=== PATIENT | male | born 1965 | race Caucasian/White ===

== ENCOUNTER 2018-12-23 10:52 | Outpatient (REF) | payer OTHER, SELFPAY ==
[2018-12-23 20:57] LABS: Anion Gap 8.7 mmol/L (3-11); BUN 19 mg/dL (7-18); CO2 26.3 mmol/L (21.0-32.0); CREATININE 0.73 mg/dL (0.70-1.30); Calcium 9.5 mg/dL (8.5-10.1); Chloride 105 mmol/L (98-107); Glucose 129 mg/dL (70-100); Potassium 4.4 mmol/L (3.5-5.1); Sodium 140 mmol/L (136-145)
== END 2018-12-23 11:12 ==
LOC: NCHCN 10:52
PROVIDERS: PCP Physician Assistant Medical; Visit Provider Physician Assistant Medical
DX: I10 Essential (primary) hypertension (principal); R73.03 Prediabetes
CPT/HCPCS: 80048

== ENCOUNTER 2023-02-26 13:30 | Outpatient (REF) | payer MEDICAID, SELFPAY ==
[2023-02-26 20:48] LABS: Hemoglobin A1C 6.4 % (<5.7)
[2023-02-26 20:55] LABS: ALT 28 U/L (16-63); AST 26 U/L (15-37); Albumin 3.8 g/dL (3.4-5.0); Alkaline Phosphatase 132 U/L (46-116); Anion Gap 8.4 mmol/L (3-11); BUN 17 mg/dL (7-18); Bilirubin, Total 0.3 mg/dL (0.2-1.0); CO2 26.6 mmol/L (21.0-32.0); CREATININE 0.8 mg/dL (0.70-1.30); Calcium 9.5 mg/dL (8.5-10.1); Calculated LDL 119 mg/dL (<100); Chloride 104 mmol/L (98-107); Cholesterol 178 mg/dL (<200); Estimated GFR 103.87 (mL/min/1.73m2); Glucose 123 mg/dL (74-106); HDL Cholesterol 47 mg/dL (40-60); Potassium 4.7 mmol/L (3.5-5.1); Sodium 139 mmol/L (136-145); Total Protein 7.7 g/dL (6.4-8.2); Triglyceride 62 mg/dL (<150)
== END 2023-02-26 13:31 | disposition home or self-care (01) ==
LOC: NCHCN 13:30
PROVIDERS: PCP Physician Assistant Medical; Visit Provider Physician Assistant
DX: I10 Essential (primary) hypertension (principal); R73.03 Prediabetes; E78.5 Hyperlipidemia, unspecified
CPT/HCPCS: 80053; 80061; 83036

== ENCOUNTER 2024-04-22 18:01 | Outpatient (REF) | payer MEDICAID, SELFPAY ==
[2024-04-22 19:28] LABS: Abs Immature Grans 0.03 10^3/uL (0.0-0.06); Absolute Basophil Count 0.08 10^3/uL (0.0-0.2); Absolute Eosinophil Count 0.28 10^3/uL (0.0-0.7); Absolute Lymphocyte Count 1.11 10^3/uL (1.2-3.4); Absolute Monocyte Count 0.74 10^3/uL (0.1-0.8); Absolute Neutrophil Count 4.36 10^3/uL (1.2-6.7); Basophils % 1.2 %; Eosinophils % 4.2 %; HCT 41.3 % (40.0-50.0); HGB 13.8 g/dL (13.5-17.5); Immature Grans % 0.5 %; Lymphocytes % 16.8 %; MCH 28.8 pg (27.0-33.0); MCHC 33.4 % (32.0-36.0); MCV 86 fL (80-95); Monocytes % 11.2 %; Neutrophils % 66.1 %; Platelet Count 366 10^3/uL (130-400); RBC 4.79 10^6/uL (4.36-5.78); RDW 14.1 % (11.8-14.1); RDW-SD 44.6 fL
[2024-04-22 19:44] LABS: ALT 21 U/L (16-63); AST 27 U/L (15-37); Albumin 3.8 g/dL (3.4-5.0); Alkaline Phosphatase 136 U/L (46-116); Anion Gap 5.9 mmol/L (3-11); BUN 12 mg/dL (7-18); Bilirubin, Total 0.62 mg/dL (0.2-1.0); CO2 28.1 mmol/L (21.0-32.0); Calcium 9.4 mg/dL (8.5-10.1); Chloride 104 mmol/L (98-107); Estimated GFR 87.78 (mL/min/1.73m2); Glucose 104 mg/dL (74-106); Potassium 3.8 mmol/L (3.5-5.1); Sodium 138 mmol/L (136-145); Total Protein 7.6 g/dL (6.4-8.2)
== END 2024-04-22 18:02 | disposition home or self-care (01) ==
LOC: NCHCN 18:01
PROVIDERS: PCP Physician Assistant; Visit Provider Physician Assistant
DX: I10 Essential (primary) hypertension (principal)
CPT/HCPCS: 80053; 85025

== ENCOUNTER 2024-09-16 15:33 | Outpatient (CLI) | payer MEDICAID, SELFPAY ==
--- NOTE | 2024-09-16 15:15 | DI.RAD_ITS ---
Exam(s) XR STANDING ALIGNMENT EXAM: XR STANDING ALIGNMENT CLINICAL HISTORY: TKR planning. TECHNIQUE: 2D digital imaging was performed. COMPARISON: No exams were available for comparison FINDINGS: 3 views There has been previous right knee ACL surgery. No narrowing of the medial compartment of the right knee. Relatively maintained height of the lateral compartment although there is chondrocalcinosis in the lateral compartment noted. The opposite-left knee appears unremarkable. Both hips appear unrem arkable as do the ankles. Next awilda ossicles noted subjacent to the lateral malleolus of the right ankle. Talar domes appear unremarkable. Bone density is normal. There are no osseous lesions. Sac roiliac joints appear unremarkable. IMPRESSION: Previous right knee ACL surgery with advanced osteoarthritic degenerative changes in the medial javi rtment of the right knee. DATA REPOSITORY: RADIATION DOSE DELIVERED:
--- NOTE | 2024-09-16 16:07 | DI.RAD_ITS ---
Exam(s) XR KNEE RT 1V EXAM: XR KNEE RT 1V CLINICAL HISTORY: TKR planning. TECHNIQUE: 2D digital imaging was performed. COMPARISON: Standing bilateral AP images earlier today FINDINGS: Single lateral view of the right knee There is evidence of previous ACL surgery. [id number] narrowing of the medial compartment is noted and there also advanced degenerative changes in the patellofemoral compartment. There are prominent opposing osteophytes off the superior pole of patella and anterior aspect of the femoral condyles. Incidentally noted is deep subcutaneous calcification of the posterior calf, possibly related to supe rficial veins. IMPRESSION: Advanced degenerative changes in the right knee. Previous ACL surgery. DATA REPOSITORY: RADIATION DOSE DELIVERED:
--- NOTE | 2024-09-16 16:07 | DI.RAD_ITS ---
Exam(s) XR KNEE LT 1V EXAM: XR KNEE LT 1V CLINICAL HISTORY: TKR planning. TECHNIQUE: 2D digital imaging was performed. COMPARISON: CR XR KNEE RT 1V from 09/16/2024 FINDINGS: Single lateral view of the left knee: No evidence of fracture. There is a small joint effusion noted. There is also an enthesophyte at th e quadriceps insertion site on the anterosuperior aspect of the patella. There are no obvious degene rative changes in the in the patellofemoral compartment on this view. Mild joint space narrowing oth er compartments IMPRESSION: Mild findings as above. There is also a joint effusion. DATA REPOSITORY: RADIATION DOSE DELIVERED:
== END 2024-09-16 15:34 | disposition home or self-care (01) ==
LOC: DIORS 15:34
PROVIDERS: PCP Physician Assistant; Visit Provider Physician Assistant
DX: M17.0 Bilateral primary osteoarthritis of knee (principal)
CPT/HCPCS: 73560; 77073

== ENCOUNTER 2024-10-05 01:11 | Outpatient (CLI) | payer MEDICAID, SELFPAY ==
--- NOTE | 2024-10-05 13:00 | DI.MRI_ITS ---
Exam(s) MR UPPER JOINT RT WO EXAM: MR UPPER JOINT RT WO CLINICAL HISTORY: R SHOULDER PAIN,RT ROTATOR CUFF TEAR,M75.101. TECHNIQUE: Multiplanar multisequence MRI was performed. COMPARISON: There are no priors for comparison. FINDINGS: BONES: There is no fracture or contusion pattern. There are subchondral cysts seen in the greater tub erosity. JOINTS: [id number] degenerative changes are seen at the acromioclavicular joint. TENDONS: Supraspinatus: There is a complete tear of the supraspinatus tendon with retraction to the level of t he glenohumeral joint. There is superior subluxation of the humeral head relative to the glenoid con sistent with a large rotator cuff tear. Infraspinatus: There is also near complete tear of the infraspinatus tendon. There does appear to be a small component of the tendon posteriorly adjacent to the teres minor tendon. The remainder of th e tendon is retracted. Subscapularis: Unremarkable. Teres Minor: Unremarkable. Biceps and [place]: There is a shallow bicipital groove and medial subluxation of the biceps tendon is noted. MUSCLES: There is marked fatty atrophy of both the supraspinatus and infraspinatus muscles. The subs capularis and teres minor muscles show normal signal and size. GLENOID LABRUM: There is abnormal signal within the posterior superior labrum. This may represent de generation or tear. SOFT TISSUES: Unremarkable. LIGAMENTS: There does appear to be thickening of the middle glenohumeral ligament. OTHER: There is some fluid seen in the subacromial subdeltoid bursa. IMPRESSION: 1. Complete tear of the supraspinatus tendon with retraction to the level of the glenohumeral joint. 2. Large near complete tear of the infraspinatus tendon with retraction. 3. Marked fatty atrophy of the supraspinatus and infraspinatus muscles. 4. Tear versus degeneration of the posterior superior labrum. 5. Degenerative changes seen at the acromioclavicular joint and the greater tuberosity. 6. Medial subluxation of the biceps tendon. DATA REPOSITORY:
--- NOTE | 2024-10-05 13:45 | DI.MRI_ITS ---
Exam(s) MR UPPER JOINT LT WO EXAM: MR UPPER JOINT LT WO CLINICAL HISTORY: L SHOULDER PAIN,LT ROTATOR CUFF TEAR,M75.102. TECHNIQUE: Multiplanar multisequence MRI was performed. COMPARISON: CR XR SHOULDER MIN 2V BILAT-M2 from 09/13/2024 MR MR UPPER JOINT RT WO from 10/05/2024 FINDINGS: BONES: There is no fracture or contusion pattern. JOINTS: There are mild degenerative changes seen at the acromioclavicular joint. There is mild super ior subluxation of the humeral head relative to the glenoid. TENDONS: Supraspinatus: There is a complete tear of the supraspinatus tendon with retraction almost to the lev el of the acromioclavicular joint. Infraspinatus: Unremarkable. Subscapularis: There is tendinosis of the subscapularis tendon. Teres Minor: Unremarkable. Biceps and [place]: There is tendinosis of the biceps tendon. MUSCLES: There is mild atrophy of the supraspinatus muscle. GLENOID LABRUM: There is abnormal signal seen in the posterior inferior labrum. Hyperintense signal seen on the T2 weighted images. This may represent a tear. There is also decreased size and abnorma l signal in the posterior superior labrum which may represent degeneration. SOFT TISSUES: Unremarkable. LIGAMENTS: Unremarkable. OTHER: Subacromial and subdeltoid bursae are unremarkable. IMPRESSION: 1. Complete tear of the supraspinatus tendon with retraction almost to the glenohumeral joint. 2. Subscapularis and biceps tendinosis. 3. Degeneration seen in the posterior labrum. Tear cannot be excluded. 4. Mild decrease in size of the supraspinatus muscle which may represent atrophy. 5. Degenerative changes seen at the acromioclavicular joint. DATA REPOSITORY:
== END 2024-10-05 01:31 ==
LOC: DI 01:11
PROVIDERS: PCP Physician Assistant; Visit Provider Student in an Organized Health Care Education/Training Program
DX: M75.121 Complete rotator cuff tear or rupture of right shoulder, not specified as traumatic (principal); M75.32 Calcific tendinitis of left shoulder
CPT/HCPCS: 73221

== ENCOUNTER 2025-03-01 13:01 | Day surgery (SDC) | payer MEDICAID, SELFPAY ==
[2025-03-01] VITALS (21 sets, daily range): BP systolic 87–105; BP diastolic 53–84; PULSE 47–85; RESP 14–22; TEMP 36.2–37.1; O2SAT 93–99; BMI 28.7
--- NOTE | 2025-03-01 10:52 | W.PM.DSUDISC ---
Date of service: 03/01/25 Discharge Plan Disposition Patient Disposition: Home Condition: Good Discharge Details Reason For Visit: Right knee DJD Attending Provider: Daniele Desai Primary Care Provider: Juliet Malone Home Meds and New Rx's Prescriptions: New celecoxib [Celebrex] 200 mg capsule 200 mg PO BID PRNQty: 60 0RF Rx Instructions: Take one tablet twice daily for pain and inflammation aspirin 81 mg tablet,delayed release (DR/EC) 81 mg PO BID 30 Days Qty: 60 0RF acetaminophen 500 mg tablet 1,000 mg PO Q8H PRN Qty: 90 0RF Rx Instructions: Take two tablets up to every 8 hours as needed for pain docusate sodium [Colace] 100 mg capsule 100 mg PO BID Qty: 28 0RF oxycodone 5 mg tablet 5 mg PO Q4H PRNQty: 18 0RF Rx Instructions: Take one tablet up to every 4 hours as needed for severe postoperative pain pantoprazole 40 mg tablet,delayed release (DR/EC) 40 mg PO DAILY Qty: 14 0RF Rx Instructions: Take one tablet once daily Continued insulin lispro [Humalog KwikPen Insulin] 100 unit/mL insulin pen 6 unit subcut DAILY insulin glargine [Lantus Solostar U-100 Insulin] 100 unit/mL (3 mL) insulin pen 28 unit subcut QAM albuterol sulfate [Ventolin HFA] 90 mcg/actuation HFA aerosol inhaler 2 puff inhalation Q6H PRN tamsulosin [Flomax] 0.4 mg capsule 0.4 mg PO DAILY Qty: 90 1RF atorvastatin 40 mg tablet 40 mg PO DAILY gabapentin 600 mg tablet 1,200 mg PO BID lisinopril 20 mg tablet 20 mg PO DAILY Discontinued acetaminophen 500 mg capsule 1,000 mg PO BID PRN ibuprofen 800 mg tablet 800 mg PO TID Discharge Instructions Additional Instructions: Total Knee Discharge Instructions Activity: The most important activity is to walk and to work on gentle motion (both flexion and extension). You should try to take short walks a few times a day. It is important that when resting you work on keeping the knee straight. Avoid putting a pillow behind the knee as this will encourage flexion. Work on range of motion exercises as provided by Physical Therapy. - Start outpatient physical therapy within 2 weeks. - You should wear the SUSANNE hose on both legs for 2 weeks. You may remove these at night. You may also use any compression sock in place of the SUSANNE hose. - Utilize [employer] to review exercises, see videos on exercises and obtain basic information pertaining to your surgery and your recovery. Dressing: Remove the Tex wrap by 2 days after your surgery and put on the SUSANNE stocking given to you from the hospital. Keep the surgical dressing (underneath the TEX wrap) in place for at least one week. After the first week it may be removed and replaced with light gauze and tape or nothing. The wound and dressing may get wet after 3 days but avoid soaking the dressing or otherwise it will need to be changed. Many people prefer covering the dressing with cling wrap (saran wrap) to minimize it from getting soaked. If it gets wet, just pat dry. If it starts to peel off then it will need to be changed. Medications: - You should take Tylenol and anti-inflammatory Celebrex as your primary pain control medications. If the Celebrex is too expensive or not covered, please call the office for another alternative (Advil/Ibuprofen or Naproxen/Aleve) - You have been prescribed a stronger pain medication Oxycodone for breakthrough pain, take as needed as prescribed. - You have also been prescribed a stomach acid reduction agent Pantoprozole to help reduce stomach acid and reflux. - You take Gabapentin at baseline - continue to take as prescribed for restlessness and nerve pain. - You will be taking Aspirin 81mg twice a day for DVT prevention unless instructed otherwise. - If you have constipation you should take Colace (which has been prescribed) or Miralax (which is available [id number]). It takes most people 3-4 days to have a bowel movement. Follow-up: 2 weeks If you have any acute concerns or questions, please do not hesitate to contact the office at [phone]. You may contact Dr. Desai with any questions after hours through the hospital at [phone] or on his cell phone at [phone]. Stand Alone Forms: Anesthesia Discharge Inst., Ann.Nerve Block Instructions, Garth Murrell ([facility]) Referrals: Daniele Desai MD [ [facility] STAFF PHYSICIAN, Orthopaedic Surgical] - 03/14/25 8:30 am Equipment/Supplies: Walker Activity:: Elevate Remove Dressings/Wound Care:: Do Not Remove Shower/Bathe:: Cover Diet:: As Tolerated Discharge Orders Discharge Orders: Discharge Order (Routine); Ordered 03/01/25 Ordered By: Janessa Escalera
--- NOTE | 2025-03-01 11:36 | PDOC.ANES ---
Date of service: 03/01/25 Time of Service: 11:36 Anesthesia Note Report Anesthesia Note: Messaged by [facility] RN, patient had coffee with creamer last at 0830. I went and confirmed with the patient, that is true. Patient educated to NPO times and risk. Discussed with surgeon and assessment manager, patient to proceed at 1430. Patient is leaving for a little bit and will be back at 1300 for initial preop. Patient is reminded to not eat or drink anything from now until surgery.
[2025-03-01] MEDS: Acetaminophen 500 MG TAB 1000 MG PO (13:35)
[2025-03-01] MEDS: Celecoxib 200 MG CAP 400 MG PO (13:35)
[2025-03-01] MEDS: Gabapentin 300 MG CAP PO (13:36)
[2025-03-01] MEDS: Lactated Ringers 1,000 ML 80 ML IV (13:50)
--- NOTE | 2025-03-01 14:26 | W.ANESPRE ---
General Info Date of Service Date Performed: 03/01/25 Height: 5 ft 11 in Weight: 93.4 kg Body Mass Index (BMI): 28.7 Surgical Procedure: Operation Date: 03/01/25 14:25 Proposed Procedure Side Surgeon p Knee Total Arthroplasty Right Daniele Desai MD Meds Allergies and Home Medications Allergies Allergy/AdvReac Type Severity Reaction Status Date / Time No Known Allergies Allergy Verified 03/01/25 13:31 Home Medication ?Medication ?Instructions ?Recorded atorvastatin 40 mg tablet 40 mg PO DAILY 10/07/23 gabapentin 600 mg tablet 1,200 mg PO BID 10/07/23 lisinopril 20 mg tablet 20 mg PO DAILY 10/07/23 albuterol sulfate 90 mcg/actuation 2 puff inhalation Q6H PRN 10/29/23 aerosol inhaler (Ventolin HFA) insulin glargine 100 unit/mL (3 28 unit subcut QAM 10/29/23 mL) subcutaneous pen (Lantus Solostar U-100 Insulin) insulin lispro 100 unit/mL 6 unit subcut DAILY 10/29/23 subcutaneous pen (Humalog KwikPen (U-100) Insulin) tamsulosin 0.4 mg capsule (Flomax) 0.4 mg PO DAILY #90 caps 10/29/23 acetaminophen 500 mg tablet 1,000 mg (2 x 500 mg) PO Q8H PRN 03/01/25 pain #90 tabs aspirin 81 mg tablet,delayed 81 mg PO BID 30 days #60 tabs 03/01/25 release celecoxib 200 mg capsule (Celebrex) 200 mg PO BID PRN #60 caps 03/01/25 docusate sodium 100 mg capsule 100 mg PO BID #28 caps 03/01/25 (Colace) oxycodone 5 mg tablet 5 mg PO Q4H PRN #18 tabs 03/01/25 pantoprazole 40 mg tablet,delayed 40 mg PO DAILY #14 tabs 03/01/25 release Current Visit Medications: Current Medications Generic Name Dose Route Start Last Admin Trade Name Freq PRN Reason Stop Dose Admin Acetaminophen 1,000 mg 03/01/25 06:00 03/01/25 13:35 Acetaminophen 500 Mg Tab PO 03/01/25 23:59 1,000 mg PREOP CARI Administration Celecoxib 400 mg 03/01/25 06:00 03/01/25 13:35 Celecoxib 200 Mg Cap PO 03/01/25 23:59 400 mg PREOP CARI Administration Gabapentin 300 mg 03/01/25 06:00 03/01/25 13:36 Gabapentin 300 Mg Cap PO 03/01/25 23:59 300 mg PREOP CARI Administration Hydromorphone HCl 0.5 mg 03/01/25 07:21 Hydromorphone 2 Mg/Ml Syr IVP 03/31/25 07:20 Q2H PRN PRN Ringer's Solution 1,000 mls @ 80 mls/hr 03/01/25 06:00 03/01/25 13:50 IV 03/01/25 23:59 80 mls/hr INFUSION CARI Administration Cefazolin Sodium/Dextrose 2 gm in 50 mls @ 100 mls/hr 03/01/25 06:00 Ancef Duplex IVPB 03/01/25 23:59 PREOP CARI Tranexamic Acid/Sodium Chloride 1,000 mg in 100 mls @ 600 mls/hr 03/01/25 06:00 IVPB 03/01/25 23:59 PREOP CARI Cefazolin Sodium/Dextrose 1 gm in 50 mls @ 100 mls/hr 03/01/25 18:00 Ancef Duplex IVPB 03/02/25 10:29 Q8H CARI IV Miscellaneous Supplies 1 each 03/01/25 06:00 Iv Access IV 03/01/25 23:59 DIRECTED CARI Oxycodone HCl 0 mg 03/01/25 07:21 Oxycodone 5 Mg Tab PO 03/31/25 07:20 Q3H PRN PRN Pain Sodium Chloride 0 ml 03/01/25 06:00 Normal Saline Flush 10 Ml Syr IV 03/01/25 23:59 PRN PRN Sodium Chloride 0 ml 03/01/25 06:00 Normal Saline 10 Ml Vial IJ 03/01/25 23:59 DIRECTED PRN Sterile Water 0 ml 03/01/25 06:00 Water,Injection,Sterile 10 Ml Vial IJ 03/01/25 23:59 DIRECTED PRN Tranexamic Acid 1,300 mg 03/01/25 08:00 Tranexamic Acid 650 Mg Tab PO 03/01/25 23:59 DIRECTED CARI PFSH Active Problems Active Problems: Problem Status Onset Code Degenerative joint disease of right knee Chronic M17.11 No-show for appointment Acute Z91.199 Bilateral primary osteoarthritis of knee Acute M17.0 Right carpal tunnel syndrome Acute G56.01 Rupture of right proximal biceps tendon Acute S46.211A Right rotator cuff tear Acute M75.101 Left rotator cuff tear Acute M75.102 Incomplete bladder emptying Acute R33.9 Ulnar shaft fracture Acute S52.209A Tobacco dependence Acute F17.200 Symptomatic periapical periodontitis Acute K04.5 Sleep apnea Acute G47.30 Shoulder joint pain Acute M25.519 Prediabetes Acute R73.03 Pain in right knee Acute M25.561 BRIAN (obstructive sleep apnea) Chronic G47.33 Lateral epicondylitis Acute M77.10 Idiopathic osteoarthritis Acute M19.90 Hypertension Chronic I10 Hyperlipidemia Acute E78.5 Fracture of left ulna, shaft Acute S52.202A Disorder of hyperalimentation Acute R63.2 Medical History Medical History Compressed spine fracture 2023 Chronic pain Tobacco Smoking/Tobacco Use Status: Current every day Tobacco Type: e-cigarettes Passive smoking exposure: Yes Alcohol Alcohol Intake: former Substance Use Substance use: Rarely Substance use type: marijuana Details: 03/01/25: Pt reports last used 20 years ago. Pt smoked 3-4 cigarettes Vital Signs and Lab Results Vital Signs Most Recent Vital Signs in EMR: Most Recent Vital Signs Temp Pulse Resp BP Pulse Ox 37.1 C 60 20 103/84 99 03/01/25 13:09 03/01/25 13:09 03/01/25 13:09 03/01/25 13:09 03/01/25 13:09 Anesthesia Assessment and Plan Anesthesia History Personal History: No History of Anesthesia Complications Family History: No Family History of Anesthesia Complications Exercise Tolerance Exercise Tolerance: Metabolic Equivalents>4 Pertinent Negatives Pertinent Negatives: No Symptoms of GERD, No Major Cardiovascular Symptoms or Complaints, No Major Pulmonary Symptoms or Complaints and No History of CVA/TIA Cardiac & Pulmonary Exam Cardiac Exam: Normal S1/S2 Heart Sounds Pulmonary Exam: Clear Bilateral Breath Sounds Implantable Cardiac Device Does patient have a Pacemaker or an ICD?: No Airway Exam Known Difficult Airway: No Mallampati Class: 3 Mouth Opening: Normal (> 3cm) Thyromental Distance: Greater than 3 cm Neck Range of Motion: Full ROM Neck Circumference: Normal Teeth Condition: Removable Dentures/Plates Upper (lower partial ) ASA Classification ASA Score: ASA 3 Emergency Case?: No NPO Status NPO Status: NPO Clears >2 hours, Solids >8 hours Anesthesia Plan Resuscitation Status: Full Code Anesthesia Technique: Spinal Anesthesia Airway Planned: Natural Airway Pain Management: Surgeon and patient request nerve block Monitors Used: Standard Monitors
--- NOTE | 2025-03-01 14:27 | W.ANESNERVE ---
Nerve Block Single Injection Procedure Date and Time Date Performed: 03/01/25 Procedure Start: 14:15 Location Where Procedure Performed Procedure Location: Day Surgery Unit Reason Performed: Postoperative Analgesia Requesting Provider: Daniele Desai Timeout Performed Timeout Performed: Yes Monitoring Used ECG, Blood Pressure, SpO2 and See EMR for corresponding vital signs Sterility Sterility: Hand Hygiene, Surgical Cap, Surgical Mask, Sterile Gloves and Chlorhexidine Sedation Given During Procedure Sedation Given (Indicate Dose Given): No Sedation given Patient Mental Status Patient Mental Status: Awake Nerve Block 1st Nerve Block: Laterality: Right Block Type: Adductor Canal Ultrasound Image Saved?: Yes Needle / Catheter Used: 100mm SonoPlex II Local Anesthetic Bolus (Indicate Dose Given): Injected in 3-5ml increments after negative blood aspiration, Bupivacaine 0.25% Dose:: 10mL, Exparel Dose:: 10mL and Other Medication/Route/Dose:: 2mL chloroprocaine used for skin Additives (Indicate Dose Given): None Ultrasound: Sterile probe cover and gel used Nerve Stimulator: Supplement to Ultrasound use and No twitch or parasthesia noted < 0.5 mA Paresthesia: None Procedure Tolerated: No Complications and Patient tolerated well Procedure Outcome: Successful Performed By: Francheska Cosme Supervised By: Marti Mcdonald
[2025-03-01] MEDS: ceFAZolin 2 GM/50 ML BAG IVPB (14:32)
--- NOTE | 2025-03-01 14:39 | W.PM.OP ---
Operative Note Operative Note PRE-OP DIAGNOSIS: Right Knee Post-traumatic arthritis POST-OP DIAGNOSIS: same PROCEDURE: Right Total Knee Replacement SURGEON: Daniele Desai ENVIRONMENTAL PROJECT MANAGER: Janessa Escalera ANESTHESIA TYPE: Spinal Refer to Anesthesia Record ESTIMATED BLOOD LOSS: 200 PATHOLOGY: none sent TOURNIQUET TIME: 0 COMPLICATIONS: None Patient was transported to: PACU Patient's condition: stable Implants: 1. Depuy Attune Cementless Cruciate Retaining Femoral Component, Size 5 2. Depuy Attune Cementless Fixed Bearing Tibial Component, Size 6 3. Depuy Attune 5x7mm CR/FB Poly Indications: I have seen Marvin in clinic for symptoms of knee arthritis, confirmed with radiographic findings. He has exhausted nonoperative methods and was having significant limitations in daily function and desired better function and less pain. I discussed the technical details of a knee replacement. I explained the risks of the procedure to include, but not limited to, bleeding, infection, pain, stiffness, fracture, damage to nerves and vessels, damage to muscles and tendons, loosening, need for repeat procedure, blood clot and cardiopulmonary demise. Despite these risks, Marvin elected to proceed. Findings: There was significant signs of arthritis throughout the knee, primarily involving the medial compartment but also lateral compartment. There were large osteophytes throughout. Previous screw in the tibia for the ACL reconstruction was removed. Procedure Description: Marvin was greeted in the preoperative holding area where the correct side was identified and marked. The consent was reviewed with the patient and signed. The history and physical was updated. All questions were answered. Preoperative medications were administered: Acetaminophen 1000mg, Celebrex 400mg, and Gabapentin 300mg. An adductor canal block was then administered by the anesthesia team in the [facility]. He was taken back to the operating room. A spinal anesthestic was then administered. The patient was placed into the supine position on the operating room table. Posts were placed for positioning during the procedure. All bony prominences were well padded. Prophylactic antibiotics in the form of Cefazolin were administered. 1g of Tranxemic Acid was given intravenously within 30 minutes of incision. The right leg was then prepped with Chloraprep and draped in a standard fashion with impervious stockinette. A second prep with Chloraprep was performed prior to application of Iodine impregnated skin protection. A timeout to confirm correct identity, side and site, procedure, allergies, anesthesia, and medical concerns was performed. With the knee in some flexion, a midline incision was made overlying the knee. Full thickness skin flaps were raised once the extensor mechanism was encountered. These were raised medially and laterally. Any bleeding was controlled with electrocautery. Once the extensor mechanism was fully exposed, a medial parapatellar arthrotomy was performed in a flexed position. All bleeding from the arthrotomy and the geniculate arteries was coagulated. A medial subperiosteal peel was performed with electrocautery to the midcoronal plane. Due to the significant varus deformity the entire medial tibial plateau was exposed. The fat pad was removed while keeping the patellar tendon protected. The anterior distal femur synovium was removed for later visualization. The ACL and PCL were resected and the anterior horn of the lateral meniscus was transected. The knee was then flexed with the patella everted. Large osteophytes from the tibia were removed. Large osteophytes from the femur were removed. There was notable synovitis and large osteophytes throughout. Using a step drill, and based on preoperative templating, the femoral canal was entered. This was done with a step drill without any difficulty. The intramedullary distal femoral cut guide was inserted, set to a 5 degree valgus cut and 9mm cut thickness. The distal femoral cut guide was then held in position and pinned. With the soft tissues protected, the distal cut was performed. This was passed over a few times to ensure a planar cut. I then turned attention to the tibia. The extramedullary guide was placed onto the leg. The distal aspect was slid medial to adjust for position of center of ankle and stay in line with shaft of the tibia. Approximately 3-5 degrees of posterior slope was kept in the proximal cutting guide. The center of the guide was aligned with the PCL. The stylus was used to assess cut thickness. The medial side, most involved side, was set for a 4mm cut. This was then held in position and pinned into place with 2 additional pins and a cross pin for stability. The medial and lateral collateral ligaments were protected and the cut was performed. With this completed, it was assessed and noted to be of appropriate dimensions. The guide was removed. A spacer block was inserted and the knee was brought into extension. The 6mm spacer block provided full extension, without hyperextension and with stability of both the medial and lateral collateral ligaments was assessed. The pins from the femur and the tibia were then removed. The distal femur was then sized. The anterior stylus was placed onto the lateral ridge of the anterior femur. This indicated a size 5 femur. The external rotation of the guide was adjusted to 3 degrees to match the epicondylar axis, perpendicular to Ladonna?s line. The 4-in-1 cutting guide was the placed. The posterior medial femur cut was evaluated and appeared of good thickness. The spacer block was inserted underneath the cutting guide and stability was confirmed in 90 degrees of flexion. An kaye wing was used to confirm appropriate position of the anterior cut to avoid notching. This cutting guide was ensured to be flush on the cut surface and then pinned into place with headed pins. While protecting the soft tissues, quad tendon, and collateral ligaments, the anterior and posterior cuts were performed with a saw. The central two pins were removed and the posterior and anterior chamfers were cut next. The notch-cutting guide was placed. This was pinned to lateralize the femoral component as much as possible while keeping it flush on the cut surface. This was then pinned into position. A reciprocating saw was used to make the notch cut. A rasp smoothed the cut surfaces. The medial and lateral menisci were removed. A trial femoral component was then inserted, impacted down to the cut surfaces, and the lug holes were drilled. A provisional trial tibial component was placed and the knee was brought through range of motion. The polyethylene was trialed until there was good flexion and extension with excellent stability to the medial and lateral collaterals. The patella was tracking without thumbs. A size 7mm polyethylene component provided the best range of motion and stability with less than 2mm gapping with medial and lateral stress and full extension without significant hyperextension. The tibial cut surface was fully exposed. The tibia was then sized as a 6. The tibia had been previously marked during trialing to correspond to the center of the tibial component to help with rotation. The trial was aligned to this armando, approximately rotated to the medial 1/3rd of the tibial tubercle. The trial was pinned into place. The tibia was prepared with a reamer and a keel punch and lug holes. The trial components were removed. The final components were opened on the back table. The periosteal and capsular tissues, especially posteriorly, around the knee were then systematically injected with a periarticular cocktail consisting of 246mg of Ropivacaine, 0.5mg of Epinephrine, 0.08mg of Clonidine, and 30mg of Ketorolac, diluted to 100cc. On the back table, with the implants opened. The cementless knee components were placed. Starting with the tibial component, the tibia was subluxed anteriorly and the lug holes of the component were lined up. The tibia was then impacted with an impactor and mallet until the tibial component was in contact with the tibia. The final polyethylene component was inserted. Then, the femoral component was inserted. The lug holes were aligned and the component was impacted into position. The knee was irrigated with Surgiphor Betadine solution. This was allowed to sit in the knee for 3 minutes and then it was irrigated out with saline. The patella was tracking with a no-thumbs technique. A complete synovectomy was performed around the patella and a lateral facetectomy was also performed. The capsule was then reapproximated with a #2 FiberWire and a no. 1 Vicryl at multiple locations. The capsule was finally closed with a No. 2 Stratafix, barbed suture. Deep tissues were then reapproximated with 0 Vicryl and 2-0 Vicryl. The skin was closed with a running 3-0 Monocryl in a subcuticular fashion. This was reinforced with skin glue. A Mepilex silver dressing was applied along with a [id number] SHAILA wrap. A CryoCuff was applied. Marvin was transferred to the hospital bed without difficulty an suffering no apparent complication. He has a good prognosis. Physical therapy will start today and without restrictions, weight-bearing as tolerated. Aspirin 81mg BID will be used for DVT prophylaxis. Date of Procedure: 03/01/25
--- NOTE | 2025-03-01 14:40 | NUR.NOTE ---
Pt returned to [facility] at 13:00 today for rescheduled pre-op for R TKA (surgery delayed by anesthesia/surgeon because pt consumed cream with coffee at 08:30am today) Cm RN noticed that pt's demeanour was different to pre-op intake at 11:00am. Pt nodding off intermittently. This RN questioned pt about medications taken today and pt informed this RN that he had only taken Lisinopril, Tamsulosin, Atorvastatin, and 3 puffs of albuterol. Pt denies taking any recreational drugs. RN's concerns verbalized to anesthesia (Tarah Mcdonald CRNA and Easton ROGEL)Nursing Note:
[2025-03-01] MEDS: TRANEXAMIC ACID/SOD. CHL. 1,000 MG/100 ML BAG 600 MG IVPB (14:42)
--- NOTE | 2025-03-01 17:03 | W.ANESPOSTOP ---
Postoperative Evaluation Date, Time and Location Date Performed: 03/01/25 Time Performed: 17:04 Patient Location: Day Surgery Unit Vital Signs Most Recent Imported Vital Signs: Most Recent Vital Signs Temp Pulse Resp BP Pulse Ox 37.1 C 85 16 98/67 L 95 03/01/25 16:45 03/01/25 16:46 03/01/25 16:46 03/01/25 16:41 03/01/25 16:45 Pain Score Most Recent Pain Score: Most Recent Pain Score Pain Level 0 03/01/25 16:45 Assessment Mental Status: Awake (Alert & Oriented to Patient Baseline) Airway and Respiratory Function: Patent airway with normal (patient baseline) respiratory exam Cardiovascular Function: Hemodynamically Stable Hydration Status: Adequately Hydrated Nausea & Vomiting: No Nausea or Vomiting Pain: Pt. Denies Any Pain Peripheral Nerve Block: Regional nerve block not resolved at time of post operative discharge Postoperative Comments:: On arrival to [facility], pt was agitated and verbally abusive to staff. Pulled out his own IV and bleed on floor. Would not cooperate with PT staff. Apparently signed AMA paperwork and was trying to leave using walker. Pt placed in wheel chair and assisted to care with female significant other driving car. Turner Miranda, ADMINISTRATIVE OPERATIONS COORDINATOR
--- NOTE | 2025-03-01 17:35 | PT.INIE ---
PT Notes Visit Reasons: Right knee DJD Physical Therapy Day Surgery Initial Evaluation Date: 03/01/2025 Referring Doctor: Janessa Escalera NP/Dr. Desai PT Orders: PT CONSULT: Status post Ortho surgery Precautions: WBAT RLE with assistive device Patient Profile/Admitting Diagnosis: Patient is a 59-year-old male presented status post elective right TKA by Dr. Desai on 03/01/2025. PMHX: Degenerative joint disease of right knee (Chronic) No-show for appointment (Acute) Bilateral primary osteoarthritis of knee (Acute) Right carpal tunnel syndrome (Acute) Rupture of right proximal biceps tendon (Acute) Right rotator cuff tear (Acute) Left rotator cuff tear (Acute) Incomplete bladder emptying (Acute) Ulnar shaft fracture (Acute) Tobacco dependence (Acute) Symptomatic periapical periodontitis (Acute) Sleep apnea (Acute) Shoulder joint pain (Acute) Prediabetes (Acute) Pain in right knee (Acute) BRIAN (obstructive sleep apnea) (Chronic) Lateral epicondylitis (Acute) Idiopathic osteoarthritis (Acute) Hypertension (Chronic) Hyperlipidemia (Acute) Fracture of left ulna, shaft (Acute) Disorder of hyperalimentation (Acute) Medical History Compressed spine fracture Chronic pain Social History/Home Situation: pt resides in multilevel home with 1 step to the various levels. Pt states he is independent walking and self care Equipment Owned/DME: fitted for and issued FWW ( pt declined the FWW however responsible person accepted it.) Subjective: I gave you 30 mins when I got back here and you have 3 mins left I do not have to do anything any of you say I just want instructions and I will leave. Objective: [] General Observation:Pt presented on stretcher reclined with IV in left dorsum of hand. Responsible female entered room and pt scooted to end of stretcher attempting to rise. without assistance or device present. Pt did agree to have gait belt placed and walked impulsively intermittently carrying the FWW to the bathroom where he proceeded to demand being left alone to get dressed. Pt was asked multiple times to sit to get dressed he declined. Dr Desai present and visualized him standing in the bathroom without AD. Pt unwilling to listen to instructions repeatedly stating I have walked on 1 leg for 30 years I can do this now. I am getting out of here. Pt was able to dress himself then sat to don socks and shoes. He removed the SUSANNE stocking from his left LE. Pt agreed to keep the lilian wrap on his right leg. Pt then exited the bathroom with the FWW. He declined to sit to allow the RN to remove the IV . Pt pulled the IV out himself then walked into the hallway with the FWW intermittently carrying it . He then approached the stairs and impulsively ascended the stairs , swinging at the top with BUE on rails and BLE in the air then descended the stairs. At the bottom of the stairs he began to bleed from the IV site and 4x4 gauze pad with tape was applied. He then agreed to sit in a wheelchair that was provided by the LITHOGRAPHER APPRENTICE. He waited for his responsible green party to get instructions and he was escorted to his car by this PT, the RN and LITHOGRAPHER APPRENTICE. Mental Status:alert agitated , impulsive , unwilling to follow instructions, talking over this PT, Pain: pt unwilling to rate his pain ROM: [] Right Upper Extremity: appeared WFL during dressing Left Upper Extremity: Appeared WFL during dressing Right Lower Extremity: Unable to formally assess visualized at least 90 degrees of flexion while pt donning shoes and socks. Observed knee extension approximately lacking 5 degrees while supine when first approached pt for assessment. Left Lower Extremity:WFL observed during dressing Strength: Not tested as pt would not participate Right Lower Extremity: knee instability noted with poor quad activation during standing tasks intermittently Sensation: not tested Bed Mobility/Transfers: [] Supine to sit independent Sit to stand independent Stand to sit independent Bed to chair supervision with FWW pt impulsive not following instructions, noted right knee instability x 2 Gait:Pt amb with FWW 50 feet intermittently impulsively picking up and carrying walker then taking steps with poor right knee stability at times. Pt unwilling to listen to instructions , yelling at this PT and RN that he gave everyone 30 mins and there are only 3 mins left and he is not going to do what we ask he just wants instructions so he can leave. Stairs: Pt impulsively ( despite being instructed not to perform the stairs) ascended 3 4 steps with B rails step to pattern then at the top of the stairs unweighted BLE and was swinging on rails. Pt then descended the 2 6 steps with B rails reciprocal pattern Balance: [] Static Sitting: Normal Dynamic Sitting: good ( pt visualized putting shoes and socks on) Static Standing: good Dynamic Standing: fair ( pt visualized able to reach for clothing to get self dressed) Special Tests: [] Mobility Limitations Standardized Measure [] [facility] AM-PAC 6 clicks Basic Mobility Inpatient Short Form: [] Raw Score: [] CMS Score: [] Informed Consent/Education: Patient instructed in purpose of PT consult. Packet containing TKA exercise protocol has been given to responsible green party. Education and training not able to be completed with the patient as he would not stay and listen to instructions. Responsible Republican, MD, RN and LITHOGRAPHER APPRENTICE also unable to reason with pt. Assessment: Patient is a 59-year-old impulsive male who presents with clinical signs and symptoms consistent with current/admitting diagnoses that have resulted to mobility limitations, gait instability, generalized weakness, and impairment of motor control as demonstrated by the following impairment level findings: 1. Decreased strength to right knee major muscle groups 2. Impaired standing balance 3. Limitation of joint range of motion in right knee 4. pain right knee 5. impulsivity/ impaired insight into unsafe situations Impairments are contributing to the following functional limitations: 1. Inability to safely ambulate without assistive device 2. Increase completion time for mobility ADL performance 3. Increased fall risk 4. Difficulty performing stairs safely Pt was not cooperative PT formal assessment. Pt unwilling to follow instructions. Assessment completed through functional assessment in attempt to maintain safety while within Day Surgery Unit. Pt declining use of FWW despite intermittent knee instability with ambulation. Patient is assessed as a moderate complexity based on the following: History: 59-year-old male with impairment level findings, functional limitations, and past medical history as indicated above Examination: Demonstrable impairment in strength, balance, and mobility level with underlying impairments and functional limitations as documented above Presentation: evolving Decision Making:moderate Goals: N/A. PT evaluation and 1-2 treatment sessions only for functional mobility training using recommended AD and for HEP instruction. Plan of Care/Treatment Plan: N/A. PT evaluation and 1-2 treatment session only for functional mobility training using recommended AD and for HEP instruction. DISCHARGE RECOMMENDATIONS:pt left AMA . Pt requires supervision and instruction for safe management of FWW. TREATMENT CODE/TIME: [id number]/ 4:56pm-5:20pm Thank you for the opportunity to participate in the care of this patient. Bibiana Mason,PT [facility]
== END 2025-03-01 17:10 | disposition home or self-care (01) ==
LOC: SUR 13:01
PROVIDERS: PCP Physician Assistant; Visit Provider Student in an Organized Health Care Education/Training Program
PROC: (CPT 27447; principal; 2025-03-01 14:15)
DX: M17.11 Unilateral primary osteoarthritis, right knee (principal); I10 Essential (primary) hypertension; G89.18 Other acute postprocedural pain
CPT/HCPCS: 27447; 64447; 97162; C1776; J0665; J0666; J0690; J1100; J2371; J2401; J2405; J2704

== ENCOUNTER 2025-03-24 11:31 | Outpatient (CLI) | payer MEDICAID, SELFPAY ==
--- NOTE | 2025-03-24 11:00 | DI.RAD_ITS ---
Exam(s) XR KNEE RT 1V XR STANDING ALIGNMENT EXAM: XR STANDING ALIGNMENT and XR knee RT 1 V CLINICAL HISTORY: 1ST POST OP S/P R TKA. TECHNIQUE: 2D digital imaging was performed. Five images were obtained. COMPARISON: CR XR STANDING ALIGNMENT from 09/16/2024 CR XR KNEE RT 1V from 09/16/2024 CR XR KNEE LT 1V from 09/16/2024 FINDINGS: BONES: The hips are well maintained. Since the prior examination, the patient has undergone a right total knee arthroplasty. The orthopedic hardware appears in good position. There is no evidence of loosening at this time. There are findings of a prior ACL repair in the right knee. There are mild degenerative changes seen in the left knee. This is characterized by joint space narrowing and osteophytes. The ankles are well maintained.There is no significant leg length discrepancy. SOFT TISSUE: Normal. IMPRESSION: 1. Interval placement of a right total knee arthroplasty. 2. Mild degenerative changes of the left knee. DATA REPOSITORY: RADIATION DOSE DELIVERED:
== END 2025-03-24 11:32 | disposition home or self-care (01) ==
LOC: DIORS 11:31
PROVIDERS: PCP Physician Assistant; Visit Provider Student in an Organized Health Care Education/Training Program
DX: Z96.651 Presence of right artificial knee joint (principal); M17.12 Unilateral primary osteoarthritis, left knee
CPT/HCPCS: 73560; 77073

== ENCOUNTER 2025-04-07 16:21 | Outpatient (REF) | payer MEDICAID, SELFPAY ==
[2025-04-07 19:02] LABS: Abs Immature Grans 0.08 10^3/uL (0.0-0.06); HCT 47.7 % (40.0-50.0); HGB 15.3 g/dL (13.5-17.5); Immature Grans % 1.0 %; MCH 28.3 pg (27.0-33.0); MCHC 32.1 % (32.0-36.0); MCV 88 fL (80-95); MPV 9.1 fL (8.0-11.0); Platelet Count 405 10^3/uL (130-400); RBC 5.40 10^6/uL (4.36-5.78); RDW 14.0 % (11.8-14.1); RDW-SD 44.9 fL; WBC 8.23 10^3/uL (4.4-10.8)
[2025-04-07 19:44] LABS: ALT 23 U/L (16-63); AST 17 U/L (15-37); Albumin 4.1 g/dL (3.4-5.0); Alkaline Phosphatase 156 U/L (46-116); Anion Gap 7.9 mmol/L (3-11); BUN 28 mg/dL (7-18); Bilirubin, Total 0.3 mg/dL (0.2-1.0); CO2 29.1 mmol/L (21.0-32.0); Calcium 10.1 mg/dL (8.5-10.1); Chloride 104 mmol/L (98-107); Estimated GFR 77.81 (mL/min/1.73m2); Glucose 124 mg/dL (74-106); Potassium 4.8 mmol/L (3.5-5.1); Sodium 141 mmol/L (136-145); Total Protein 7.9 g/dL (6.4-8.2)
== END 2025-04-07 16:22 | disposition home or self-care (01) ==
LOC: NCHCN 16:21
PROVIDERS: PCP Physician Assistant; Visit Provider Physician Assistant
DX: E11.01 Type 2 diabetes mellitus with hyperosmolarity with coma (principal)
CPT/HCPCS: 80053; 85025